=== PATIENT | male | born 1965 | race African-American/Black ===

== ENCOUNTER 2021-06-28 12:13 | Emergency (ER) | payer SELFPAY ==
[~2021-06-28] VITALS: Ht 172.7 cm; Wt 79.0 kg
[2021-06-28 12:19] VITALS: BP 164/99
[2021-06-28] MEDS ORDERED: AMOX500T2 PO (13:04)
[2021-06-28] MEDS ORDERED: SULF1TAB48 MT (13:04)
== END 2021-06-28 13:18 | disposition home or self-care (01) ==
LOC: ER 12:13
DX: L03.213 Periorbital cellulitis (principal)
CPT/HCPCS: 99283

== ENCOUNTER 2021-07-09 09:10 | Emergency (ER) | payer MEDICAID ==
[~2021-07-09] VITALS: Ht 172.7 cm; Wt 79.0 kg
[~2021-07-09 09:10] MED LIST: AMOX500T2 PO; SULF1TAB48 MT
[2021-07-09 09:14] VITALS: BP 153/106
[2021-07-09] MEDS ORDERED: AMOX-424 MT (09:40)
[2021-07-09] MEDS ORDERED: SULF1TAB48 MT (09:41)
== END 2021-07-09 09:54 | disposition home or self-care (01) ==
LOC: ER 09:10
DX: L03.213 Periorbital cellulitis (principal); Z79.899 Other long term (current) drug therapy
CPT/HCPCS: 99281